=== PATIENT | female | born 1965 | race Caucasian/White ===

== ENCOUNTER 2017-04-14 09:06 | Day surgery (SDC) | payer OTHER ==
[~2017-04-14] VITALS: Ht 167.6 cm; Wt 67.3 kg
[~2017-04-14 09:06] MED LIST: CeFAZolin 1 GM/DEXTROSE 50 ML IV ONE; LORazepam 2 MG/ML VIAL IVP PRN; SODIUM CHLORIDE 0.9% 1,000 ML IV ONE
[2017-04-14] MEDS ORDERED: LIDOCAINE HCL/PF 1% 30 ML VIAL ONE (10:27)
[2017-04-14] MEDS ORDERED: IOHEXOL 300 MG/ML 100 ML VIAL ONE (10:27)
[2017-04-14] MEDS ORDERED: HEPARIN SODIUM 1000 UNITS/NS 500 ML ONE (10:28)
[2017-04-14 10:38] LABS: BASOPHILS # (AUTO) 0.03 K/uL (0.00-0.20); BASOPHILS % (AUTO) 0.8 % (0.0-2.0); EOSINOPHILS # (AUTO) 0.13 K/uL (0.00-0.70); EOSINOPHILS % (AUTO) 3.35 % (1.0-6.0); HEMOGLOBIN 13.5 g/dL (12.0-16.0); LYMPHOCYTES # (AUTO) 0.9 K/uL (1.0-4.8); LYMPHOCYTES % (AUTO) 23.1 % (22.0-44.0); MEAN CORPUSCULAR HEMOGLOBIN 30.3 pg (26.0-34.0); MEAN CORPUSCULAR VOLUME 92 fL (80-100); MONOCYTES # (AUTO) 0.4 K/uL (0.1-1.0); MONOCYTES % (AUTO) 10.5 % (2.0-9.0); NEUTROPHILS # (AUTO) 2.4 K/uL (1.8-7.7); NEUTROPHILS % (AUTO) 62.2 % (40.0-70.0); PLATELET COUNT (AUTO) 252 K/uL (150-450); RED BLOOD CELL COUNT(AUTO) 4.47 MIL/uL (4.00-5.20); RED CELL DISTRIBUTION WIDTH 17.3 % (11.5-14.5); WHITE BLOOD COUNT (AUTO) 3.9 K/uL (4.5-11.0)
[2017-04-14] MEDS ORDERED: CHOL200012 PO (10:48)
[2017-04-14 10:54] LABS: ALANINE AMINOTRANSFERASE 43 U/L (12-78); ALBUMIN 4.1 g/dL (3.4-5.0); ANION GAP 7 mmol/L (8-16); ASPARTATE AMINOTRANSFERASE 33 U/L (15-37); BILIRUBIN,TOTAL 0.5 mg/dL (0.1-1.0); CALCIUM, TOTAL 9.5 mg/dL (8.8-10.5); CARBON DIOXIDE 27 mmol/L (22-29); CHLORIDE 104 mmol/L (98-107); CREATININE 0.63 mg/dL (0.60-1.30); GLOMERULAR FILTR. RATE CALC > 60 mL/min (>60); POTASSIUM 3.8 mmol/L (3.5-5.1); SODIUM SERUM 138 mmol/L (136-145); TOTAL PROTEIN, SERUM 7.5 g/dL (6.4-8.2); UREA NITROGEN, BLOOD 5 mg/dL (7-18)
[2017-04-14] MEDS ORDERED: CeFAZolin 1 GM/DEXTROSE 50 ML IV ONE (11:09)
[2017-04-14] MEDS ORDERED: MIDAZOLAM HCL 2 MG/2 ML VIAL ONE ×2 (11:28→12:08)
[2017-04-14] MEDS ORDERED: FentaNYL CITRATE-PF 100 MCG/2 ML VIAL ONE ×3 (11:28→13:46)
[2017-04-14] MEDS ORDERED: NITROGLYCERIN 50 MG/D5% WATER 250 ML ONE (11:30)
[2017-04-14] MEDS ORDERED: VERAPAMIL HCL 2.5 MG/ML 2 ML VIAL ONE (11:30)
[2017-04-14] MEDS ORDERED: HEPARIN SODIUM,PORCINE 1,000 UNITS/ML 10 ML VIAL ONE (11:30)
[2017-04-14 11:32] VITALS: BP 173/77
[2017-04-14] MEDS ORDERED: FentaNYL CITRATE-PF 100 MCG/2 ML VIAL IVP ONE ×4 (11:46→13:00)
[2017-04-14] MEDS ORDERED: LIDOCAINE HCL/PF 1% 30 ML VIAL INJ ONE (11:53)
[2017-04-14] MEDS ORDERED: MIDAZOLAM HCL 2 MG/2 ML VIAL IVP ONE ×2 (11:59→12:46)
[2017-04-14] MEDS ORDERED: HEPARIN SODIUM,PORCINE 1,000 UNITS/ML 10 ML VIAL IARTER ONE (12:02)
[2017-04-14] MEDS ORDERED: VERAPAMIL HCL 2.5 MG/ML 2 ML VIAL IARTER ONE (12:02)
[2017-04-14] MEDS ORDERED: NITROGLYCERIN/D5W 50 MG/250 ML IV BOTTLE IARTER ONE (12:02)
[2017-04-14] MEDS ORDERED: HEPARIN SODIUM 1000 UNITS/NS 500 ML IARTER ONE (12:03)
[2017-04-14] MEDS ORDERED: IOHEXOL 300 MG/ML 50 ML VIAL IARTER ONE (12:07)
[2017-04-14] MEDS ORDERED: IOHEXOL 300 MG/ML 100 ML VIAL IARTER ONE (12:07)
[2017-04-14] MEDS ORDERED: OXYGEN THERAPY IH SCH (12:30)
[2017-04-14 14:16] VITALS: BP 189/77
[2017-04-14] MEDS ORDERED: OxyCODONE HCL/ACETAMINOPHEN 5-325 MG TABLET PO ONE (15:00)
[2017-04-14] MEDS ORDERED: OxyCODONE HCL/ACETAMINOPHEN 5-325 MG TABLET ONE (15:02)
== END 2017-04-14 17:20 | disposition home or self-care (01) ==
LOC: SDS 09:06
PROVIDERS: ATTEND Radiology Diagnostic Radiology
DX: C50.911 Malignant neoplasm of unspecified site of right female breast (principal); D49.2 Neoplasm of unspecified behavior of bone, soft tissue, and skin; E11.9 Type 2 diabetes mellitus without complications; E03.9 Hypothyroidism, unspecified; Z72.89 Other problems related to lifestyle; Z87.891 Personal history of nicotine dependence; Z98.890 Other specified postprocedural states
CPT/HCPCS: 36217; 36218; 36415; 37243; 75710; 75726; 75756; 76937; 80053; 85025; 99152; 99153; C1769; J0690; J1644 ×2; J2250; J3010; J3490 ×3; Q9967; 36245

== ENCOUNTER 2017-07-22 07:12 | Day surgery (SDC) | payer OTHER ==
[~2017-07-22] VITALS: Ht 167.6 cm; Wt 70.0 kg
[~2017-07-22 07:12] MED LIST changes: +CHOL200012 PO
[2017-07-22 07:58] LABS: BASOPHILS # (AUTO) 0.03 K/uL (0.00-0.20); BASOPHILS % (AUTO) 0.7 % (0.0-2.0); EOSINOPHILS # (AUTO) 0.15 K/uL (0.00-0.70); HEMATOCRIT 40.8 % (36-46); HEMOGLOBIN 13.4 g/dL (12.0-16.0); LYMPHOCYTES # (AUTO) 1.1 K/uL (1.0-4.8); LYMPHOCYTES % (AUTO) 26.1 % (22.0-44.0); MEAN CORPUSCULAR HEMOGLOBIN 29.6 pg (26.0-34.0); MEAN CORPUSCULAR HGB CONC 32.9 G/dL (31.0-37.0); MEAN CORPUSCULAR VOLUME 90 fL (80-100); MONOCYTES # (AUTO) 0.4 K/uL (0.1-1.0); MONOCYTES % (AUTO) 8.8 % (2.0-9.0); NEUTROPHILS # (AUTO) 2.6 K/uL (1.8-7.7); NEUTROPHILS % (AUTO) 60.9 % (40.0-70.0); PLATELET COUNT (AUTO) 242 K/uL (150-450); RED BLOOD CELL COUNT(AUTO) 4.53 MIL/uL (4.00-5.20); RED CELL DISTRIBUTION WIDTH 13.6 % (11.5-14.5); WHITE BLOOD COUNT (AUTO) 4.3 K/uL (4.5-11.0)
[2017-07-22 08:18] LABS: ANION GAP 9 mmol/L (8-16); CALCIUM, TOTAL 9.4 mg/dL (8.8-10.5); CARBON DIOXIDE 28 mmol/L (22-29); CHLORIDE 104 mmol/L (98-107); CREATININE 0.71 mg/dL (0.60-1.30); GLOMERULAR FILTR. RATE CALC > 60 mL/min (>60); POTASSIUM 3.9 mmol/L (3.5-5.1); SODIUM SERUM 141 mmol/L (136-145); UREA NITROGEN, BLOOD 13 mg/dL (7-18)
[2017-07-22 08:24] LABS: ALANINE AMINOTRANSFERASE 40 U/L (12-78); ASPARTATE AMINOTRANSFERASE 24 U/L (15-37); BILIRUBIN,TOTAL 0.4 mg/dL (0.1-1.0); TOTAL PROTEIN, SERUM 7.6 g/dL (6.4-8.2)
[2017-07-22] MEDS ORDERED: CeFAZolin 1 GM/DEXTROSE 50 ML IV ONE (08:25)
[2017-07-22] MEDS ORDERED: LORazepam 2 MG/ML VIAL ONE (08:44)
[2017-07-22] MEDS ORDERED: FentaNYL CITRATE-PF 100 MCG/2 ML VIAL ONE (09:33)
[2017-07-22] MEDS ORDERED: MIDAZOLAM HCL 2 MG/2 ML VIAL ONE (09:34)
[2017-07-22] MEDS ORDERED: LIDOCAINE HCL/PF 1% 30 ML VIAL ONE (09:34)
[2017-07-22] MEDS ORDERED: MIDAZOLAM HCL 2 MG/2 ML VIAL IVP ONE (10:12)
[2017-07-22] MEDS ORDERED: FentaNYL CITRATE-PF 100 MCG/2 ML VIAL IVP ONE (10:12)
[2017-07-22] MEDS ORDERED: SODIUM CHLORIDE 0.9% 1,000 ML IV SCH (10:25)
[2017-07-22] MEDS ORDERED: HYDROmorphone 2 MG/ML SYRINGE IVP PRN (10:30)
[2017-07-22] MEDS ORDERED: HYDROmorphone HCL 2 MG TABLET PO ONE (10:30)
[2017-07-22] MEDS ORDERED: OxyCODONE HCL/ACETAMINOPHEN 5-325 MG TABLET PO PRN ×2 (10:30)
[2017-07-22] MEDS ORDERED: IOVERSOL 350 MG/ML 100 ML VIAL ONE (10:54)
[2017-07-22] MEDS ORDERED: SODIUM CHLORIDE 0.9% 1,000 ML IV ONE (10:55)
[2017-07-22] MEDS ORDERED: HYDROmorphone 2 MG/ML SYRINGE IM STA (11:16)
[2017-07-22] MEDS ORDERED: PROMETHAZINE HCL 25 MG/ML VIAL IM ONE (11:30)
[2017-07-22] MEDS ORDERED: HYDROmorphone 2 MG/ML SYRINGE ONE (12:07)
[2017-07-22] MEDS ORDERED: SODIUM CHLORIDE 0.9% 500 ML IV ONE (12:10)
== END 2017-07-22 13:30 | disposition home or self-care (01) ==
LOC: SURGERY 07:12 → EDSTATUS 09:00 → SURGERY 13:30
PROVIDERS: ATTEND Radiology Diagnostic Radiology
DX: C50.911 Malignant neoplasm of unspecified site of right female breast (principal); R59.0 Localized enlarged lymph nodes; Z79.899 Other long term (current) drug therapy; Z98.890 Other specified postprocedural states; Z87.891 Personal history of nicotine dependence; Z80.1 Family history of malignant neoplasm of trachea, bronchus and lung
CPT/HCPCS: 19105 ×2; 36415; 74175; 80053; 85025; 99152; 99153; C2618; J0690; J1170; J2060; J2250; J3010; J3490; J7030; J7040; Q9967